=== PATIENT | female | born 1995 | race Caucasian/White ===

== ENCOUNTER 2016-10-27 08:30 | Emergency (ER) | payer MEDICAID ==
[~2016-10-27] VITALS: Ht 157.5 cm; Wt 98.4 kg
[2016-10-27 08:32] VITALS: BP 99/75
== END 2016-10-27 10:01 | disposition home or self-care (01) ==
LOC: ER 08:30
DX: D17.0 Benign lipomatous neoplasm of skin and subcutaneous tissue of head, face and neck (principal)

== ENCOUNTER 2016-10-29 20:15 | Emergency (ER) | payer MEDICAID ==
[~2016-10-29] VITALS: Ht 157.5 cm; Wt 98.4 kg
[2016-10-29 21:04] LABS: Basophils # (auto) 0.1 uL; Basophils % (auto) 0.8 % (0.0-2.0); Eosinophils # (auto) 0.1 uL; Eosinophils % (auto) 1.1 % (0.0-7.0); Hematocrit 39.7 % (36.0-46.0); Hemoglobin 13.6 g/dL (12.2-16.2); Lymphocytes # (auto) 2.5 uL; Lymphocytes % (auto) 26.7 % (10.0-50.0); Mean Corpuscular Hgb Conc. 34.3 g/dL (32.0-36.0); Mean Corpuscular Volume 87.5 fL (80.0-100.0); Monocytes # (auto) 0.6 uL; Monocytes % (auto) 6.3 % (0.0-12.0); Neutrophils # (auto) 6.2 uL; Neutrophils % (auto) 65.1 % (37.0-80.0); Platelet Count (auto) 353 10^3/uL (140-450); Red Cell Distribution Width 13.2 % (11.6-16.0); White Blood Cell 9.6 10^3/uL (4.4-10.8)
[2016-10-29 21:04] LABS: Urine Bilirubin Negative (Negative); Urine Blood Negative /uL (Negative); Urine Color Yellow (Yellow); Urine Glucose Normal (Normal); Urine Ketone Negative (Negative); Urine Nitrite Negative (Negative); Urine RBC 1 /hpf (0 - 4); Urine Squamous Epithelial Cell MOD /hpf (<5); Urine Urobilinogen Normal (Negative); Urine pH 5.5 (5.0-8.0)
[2016-10-29 21:28] LABS: Albumin 4.1 g/dL (3.4-5.0); BUN/Creatinine Ratio 14.8; Bilirubin, Total 0.3 mg/dL (0.2-1.0); Calcium 8.7 mg/dL (8.5-10.1); Potassium 3.6 mmol/L (3.5-5.1); Total Protein 7.8 g/dL (6.4-8.2)
[2016-10-29 23:03] VITALS: BP 110/57
[2016-10-30] MEDS ORDERED: cefTRIAXone 1GM/50ML D5W 50 ML IV ONE (00:45)
[2016-10-30] MEDS ORDERED: CLINDAMYCIN 600MG IV 50 ML IV ONE (00:45)
== END 2016-10-30 01:29 | disposition home or self-care (01) ==
LOC: ER 20:20
DX: L02.11 Cutaneous abscess of neck (principal)
CPT/HCPCS: 36415; 80053; 81001; 84702; 85025